=== PATIENT | female | born 1960 | race Caucasian/White ===

== ENCOUNTER 2016-06-23 20:58 | Emergency (ER) | payer OTHER ==
[~2016-06-23 20:58] MED LIST: DIL4 PO; IMI6I PO; NEU300 PO; SYN15 PO; ULT50 PO
[2016-06-23 21:06] VITALS: BP 119/60
== END 2016-06-23 23:12 | disposition home or self-care (01) ==
LOC: ED 20:58
DX: S70.02XA Contusion of left hip, initial encounter (principal); M79.605 Pain in left leg; Z79.899 Other long term (current) drug therapy; Z88.0 Allergy status to penicillin; Z88.2 Allergy status to sulfonamides; W19.XXXA Unspecified fall, initial encounter; Y93.89 Activity, other specified; Y92.512 Supermarket, store or market as the place of occurrence of the external cause; Y99.8 Other external cause status

== ENCOUNTER 2017-06-23 20:42 | Emergency (ER) | payer OTHER ==
[~2017-06-23] VITALS: Ht 157.5 cm; Wt 68.0 kg
[2017-06-23 22:21] VITALS: BP 135/85
== END 2017-06-23 22:20 | disposition home or self-care (01) ==
LOC: ED 20:42
DX: G43.909 Migraine, unspecified, not intractable, without status migrainosus (principal); H11.32 Conjunctival hemorrhage, left eye; M54.2 Cervicalgia; E78.00 Pure hypercholesterolemia, unspecified; Z88.0 Allergy status to penicillin; Z88.2 Allergy status to sulfonamides; Z88.1 Allergy status to other antibiotic agents
CPT/HCPCS: J0780; J1885

== ENCOUNTER 2018-07-18 23:47 | Emergency (ER) | payer OTHER ==
[~2018-07-18] VITALS: Ht 157.5 cm; Wt 59.9 kg
[2018-07-18 23:53] VITALS: Ht 157.5 cm; Wt 59.9 kg
[2018-07-19 02:18] VITALS: BP 120/52
== END 2018-07-19 02:18 | disposition home or self-care (01) ==
LOC: ED 23:47
DX: J45.901 Unspecified asthma with (acute) exacerbation (principal); M79.7 Fibromyalgia; E78.00 Pure hypercholesterolemia, unspecified; K21.9 Gastro-esophageal reflux disease without esophagitis; Z85.3 Personal history of malignant neoplasm of breast; Z88.0 Allergy status to penicillin; Z88.1 Allergy status to other antibiotic agents; Z88.2 Allergy status to sulfonamides
CPT/HCPCS: J7512; J7613; J7644